=== PATIENT | female | born 1945 | race Caucasian/White ===

== ENCOUNTER 2019-02-07 11:25 | Emergency (ER) | payer MEDICARE ==
[~2019-02-07] VITALS: Ht 157.5 cm; Wt 65.8 kg
--- OUTSIDE RECORDS SUMMARY | 2019-02-07 11:26 | XMS REPORT | Continuity of Care Document ---
Author Author [facility] Interface Address Unknown Phone Unavailable Problems Problem Status Onset Date Classification Date Reported Comments Source Other specified disorders of bone density and structure, unspecified site 01/25/2018 04/25/2018 [facility] [place] C50.919 - MALIGNANT NEOPLASM OF UNSP SIT Active 08/08/2015 [facility] [place] 174.9 BREAST CANCER METASTASIZED TO LIVE Active 07/03/2014 [facility] Asymptomatic menopausal state 04/25/2018 [facility] [place] Medications Medication Details Route Status Patient Instructions Ordering Provider Order Date Source Omniscan 4,305 mg, 15 mL, Route: IV, Drug form: INJ, ONCE, Start date: 07/05/14 14:15:00, Stop date: 07/05/14 14:15:00Notes: (Same as: Omniscan). Inactive 07/05/2014 [facility] Allergies, Adverse Reactions, Alerts Substance Category Reaction Severity Reaction type Status Date Reported Comments Source Immunizations Immunization Date Given Site Status Last Updated Comments Source Results Order Name Results Value Reference Range Date Interpretation Comments Source Breast Mammo Scrn KWASI incl CAD MA Breast Mammo Scrn KWASI incl CAD MA BILATERAL DIGITAL SCREENING MAMMOGRAM WITH CAD: 08/19/2018 CLINICAL: /Z12.31 Encounter For Screening Mammogram For Malignant Neoplasm Of Breast. Current study was evaluated with a Computer Aided Detection (CAD) system. COMPARISON:Comparison is made to exams dated: 08/11/2017 mammogram, 08/04/2016 mammogram, 08/20/2015 mammogram, and 06/06/2014 mammogram - [facility]. TECHNIQUE: Mammographic views were obtained using digital acquisition. Current study was also evaluated with a Computer Aided Detection (CAD) system. FINDINGS: There are scattered fibroglandular densities in both breasts. There is a benign lymph node in the left breast. There also are benign calcifications in both breasts. Additionally, there are post operative findings in the right breast. No significant masses, calcifications, or other findings are seen in either breast. There has been no significant interval change. IMPRESSION: BENIGN RECOMMENDATION:There is no mammographic evidence of malignancy. A 1 year screening mammogram is recommended.(08/20/2019) This exam was interpreted at [id number] for ADALGISA George, SL 15. Professional services are provided by the [facility] Division of Diagnostic Imaging. Richie Anaya M.D. cm/penrad:08/21/2018 09:12:39 Sleeve Machine Tender(s): Priscila Bruce [facility] letter sent: BI-RADS 1/2 Mammogram BI-RADS: 2 Benign 08/19/2018 - - Read by: Jignesh Meraz MD Dictated Date/time: 08/21/18 09:12 Electronically Signed by: Jignesh Meraz MD 08/21/18 09:12 FINAL REPORT ADALGISA George Bone Density DXA Dual Energy MA Bone Density DXA Dual Energy MA BONE DENSITY ASSESSMENT: 01/17/2018 CLINICAL DATA: Post menopausal. Other Specified Disorders Of Bone Density And Structure, Unspecified Site/M85.80 RISK FACTORS: race. FINDINGS: Bone density evaluation was performed 01/17/2018 on the right femur neck using a Hologic unit. The BMD average for the exam is 0.895 g/cm2. The T-score is 0.40 and the Z-score is 2.30. This matches the World Health Organization's criteria for normal bone density and places the patient within normal limits of fracture risk. An additional bone density evaluation was performed 01/17/2018 on the left femur neck using a Hologic unit. The BMD average for the exam is 0.911 g/cm2. The T- score is 0.60 and the Z-score is 2.50. This matches the World Health Organization's criteria for normal bone density and places the patient within normal limits of fracture risk. An additional bone density evaluation was performed 01/17/2018 on the right hip using a Hologic unit. The BMD average for the exam is 0.982 g/cm2. The T-score is 0.30 and the Z-score is 1.90. This matches the World Health Organization's criteria for normal bone density and places the patient within normal limits of fracture risk. An additional bone density evaluation was performed 01/17/2018 on the left hip using a Hologic unit. The BMD average for the exam is 0.943 g/cm2. The Z-score is 1.60. This matches the World Health Organization's criteria for normal bone density and places the patient within normal limits of fracture risk. An additional bone density evaluation was performed 01/17/2018 on the AP L1-L4 region of spine using a Hologic unit. The BMD average for the exam is 0.859 g/cm2. The T-score is -1.70 and the Z-score is 0.50. This matches the World Health Organization's criteria for osteopenia and places the patient at a medium risk for fracture. FRAX 10 year probability of major osteoporotic fracture is 8.6% and hip fracture is 0.4%. IMPRESSION: OSTEOPENIA Patient is at medium risk for fracture. This exam was interpreted at [id number] for MANUELA Delgado 15. Richie Anaya M.D. cm/penrad:01/18/2018 09:07:41 Sleeve Machine Tender(s): Demi AGUAYO(Alethea)(M), [facility] 01/17/2018 - - Read by: Jignesh Meraz MD Dictated Date/time: 01/18/18 09:07 Electronically Signed by: Jignesh Meraz MD 01/18/18 09:07 FINAL REPORT OLIVE [facility] Breast Mammo Diag KWASI incl CAD MA Breast Mammo Diag KWASI incl CAD MA BILATERAL DIGITAL DIAGNOSTIC MAMMOGRAM WITH CAD: 08/11/2017 CLINICAL: Malignant Neoplasm Of Unspecified Site Of Right Female Breast/C50.911. Current study was evaluated with a Computer Aided Detection (CAD) system. COMPARISON:Comparison is made to exams dated: 08/04/2016 mammogram, 08/20/2015 mammogram, 06/06/2014 mammogram, 05/02/2013 mammogram - [facility], and 04/04/2013 mammogram - [facility]. TECHNIQUE: Mammographic views were obtained using digital acquisition. Current study was also evaluated with a Computer Aided Detection (CAD) system. There are scattered fibroglandular densities in both breasts. FINDINGS: There is a benign lymph node in the left breast. There also are benign calcifications in both breasts. Additionally, there are post operative findings in the right breast. No significant masses, calcifications, or other findings are seen in either breast. There has been no significant interval change. IMPRESSION: BENIGN RECOMMENDATION:There is no mammographic evidence of malignancy. A 1 year screening mammogram is recommended.(08/12/2018) This exam was interpreted at [id number] for ADALGISA George. Richie Anaya M.D. cm/penrad:08/11/2017 10:53:59 Sleeve Machine Tender(s): Demi Melendez, RT(R)(M), [facility] letter sent: BI-RADS 1/2 Mammogram BI-RADS: 2 Benign 08/11/2017 - - Read by: Jignesh Meraz MD Dictated Date/time: 08/11/17 10:53 Electronically Signed by: Jignesh Meraz MD 08/11/17 10:53 FINAL REPORT ADALGISA George Hand 2 views Bilateral DX Hand 2 views Bilateral DX EXAM: Hand 2 views Bilateral DX HISTORY: M06.4 Inflammatory polyarthropathy COMPARISON: None 3 views of each hand. There is advanced joint space narrowing and osteophyte formation involving the DIP joints. There is similar change at the PIP joints of the index finger bilaterally with subchondral cystic changes which may represent an erosive arthropathy. In the wrist, there is degenerative change at the distal scaphoid articulation and at the thumb carpal metacarpal joint bilaterally which is moderate in severity. IMPRESSION: Degenerative change as above. 12/13/2016 - - Read by: Jackson Rocha MD Dictated Date/time: 12/13/16 16:54 Electronically Signed by: Jackson Rocha MD 12/13/16 16:55 FINAL REPORT ADALGISA George Breast Limited Uni US Breast Limited Uni US - BREAST LIMITED UNI US/R ULTRASOUND OF RIGHT BREAST: 08/04/2016 CLINICAL: C50.911 Malignant Neoplasm Of Unspecified Site Of Right Female Breast. Comparison is made to exams dated: 08/04/2016 mammogram, 08/20/2015 ultrasound, 08/20/2015 mammogram - [facility], 07/05/2014 breast MRI - [facility], 06/06/2014 ultrasound and 06/06/2014 mammogram - [facility]. Color flow and real-time ultrasound of the right breast were performed. There is a benign post surgical scar in the right breast at 12 o'clock posterior depth. This abnormality is decreased in size. No abnormalities were seen sonographically in the right breast. IMPRESSION: BENIGN These results were discussed with the patient, who was instructed to return if she notices any change in the physical exam. There is no sonographic evidence of malignancy. The post surgical scar in the right breast is benign. A 1 year screening mammogram is recommended. Professional services are provided by the [facility] [place] Division of Diagnostic Imaging. Richie Anaya M.D., cm/penrad:08/04/2016 10:56:24 Sleeve Machine Tender: Bernarda Bowers [facility] This exam was dictated and interpreted by [id number] for ADALGISA George. letter sent: Normal exam Ultrasound BI-RADS: 2 Benign 08/04/2016 - - Read by: Jignesh Anaya III, MD Dictated Date/time: 08/04/16 10:56 Electronically Signed by: Jignesh Anaya III, MD 08/04/16 10:56 FINAL REPORT ADALGISA SCHAEFER Peggy Digital Mammo DX Kwasi MA Digital Mammo DX Kwasi MA - DIGITAL MAMMO DX WKASI MA BILATERAL DIGITAL DIAGNOSTIC MAMMOGRAM WITH CAD: 08/04/2016 CLINICAL: C50.911 Malignant Neoplasm Of Unspecified Site Of Right Female Breast. Current study was evaluated with a Computer Aided Detection (CAD) system. Comparison is made to exams dated: 08/20/2015 mammogram, 06/06/2014 ultrasound, 06/06/2014 mammogram, 05/02/2013 mammogram - [facility], 04/04/2013 mammogram - [facility] [place] and 04/06/2012 mammogram - [facility]. There are scattered fibroglandular densities in both breasts. There is a surgical scar in the right breast at 12 o'clock posterior depth which appears stable. Calcifications in the surgical bed have become more course but have not changed in distribution, a benign finding. No other significant masses, calcifications, or other findings are seen in either breast. IMPRESSION: BENIGN Surgical scar with fat necrosis in the right breast appears benign. An ultrasound will be performed for further evaluation. There is no mammographic evidence of malignancy. Professional services are provided by the [facility] [place] [facility] of Diagnostic Imaging. Richie Anaya M.D. cm/:08/04/2016 09:58:13 Sleeve Machine Tender: Samantha AGUAYO(R)(Viridiana), [facility] This exam was dictated and interpreted by [id number] for ADALGISA George. Mammogram BI-RADS: 2 Benign 08/04/2016 - - Read by: Jignesh Anaya III, MD Dictated Date/time: 08/04/16 09:58 Electronically Signed by: Jignesh Anaya III, MD 08/04/16 09:58 FINAL REPORT ADALGISA ARMIDAAdama Peggy Ext Lower Arterial Doppler unilat US Ext Lower Arterial Doppler unilat US Exam: Right lower extremity Doppler arterial ultrasound Reason for Exam: I73.9 Peripheral vascular disease, unspecified Comparison Exam: None Discussion: Real-time grayscale, color Doppler imaging, and spectral waveform analysis was performed of the right lower extremity deep arterial system. There is no significant stenosis seen throughout the right lower extremity deep arterial system. The velocities are unremarkable. The waveforms appear triphasic throughout. Impression: 1. Unremarkable right lower extremity arterial ultrasound. 01/20/2016 - - Read by: Artem Aldrich MD Dictated Date/time: 01/20/16 15:01 Electronically Signed by: Artem Aldrich MD 01/20/16 15:06 FINAL REPORT ADALGISA ARMIDAAdama Peggy Breast Limited Uni US Breast Limited Uni US - BREAST LIMITED UNI US/R ULTRASOUND OF RIGHT BREAST AND RIGHT AXILLA: 08/20/2015 CLINICAL: History of right breast cancer status post lumpectomy and radiation therapy in 2012, patient presents for follow-up of the right breast. Prior ultrasound on 06/06/2014 recommended ultrasound guided biopsy at the site of post-surgical scar of the right breast. This biopsy was never performed per patient history. Breast MRI on 07/05/2014 revealed right breast post-operative findings without definite evidence of residual/recurrent disease. Comparison is made to exams dated: 05/02/2013 ultrasound, 06/06/2014 mammogram, 06/06/2014 ultrasound - [facility], 07/05/2014 breast MRI - [facility] and 08/20/2015 mammogram - [facility]. Color flow and real-time targeted ultrasound of the right upper breast and axilla were performed. There is a post-surgical scar at the right breast 12 o'clock position, 7 cm from the nipple. Again demonstrated is a mixed echogenicity mass at the margin of the scar that is overall stable compared to prior ultrasound allowing for differences in technique. The mass measures 1.3 x 1.3 x 0.5 cm, previously 1.7 x 1.5 x 0.9 cm on 06/06/2014. No new suspicious findings are seen in the region of the patient's scar. No abnormalities were seen sonographically in the right axilla. IMPRESSION: BENIGN Stable mass adjacent to the post-surgical scar in the right breast 12 o'clock position. This is not significantly changed in appearance compared to ultrasound dated 06/02/2014 suggesting a benign etiology. Recommend mammogram and right breast ultrasound in one year to demonstrate stability, given the patient's scar is difficult to see mammographically. The findings were discussed with the patient at the time of the exam. There is no sonographic evidence of malignancy. A 1 year screening mammogram and an ultrasound is recommended. Mary Valverde M.D. ms/:08/20/2015 14:41:58 Sleeve Machine Tender: Bernarda Bowers, [facility] This exam was dictated and interpreted by [id number] for Peggy. letter sent: Benign Right Ultrasound BI-RADS: 2 Benign 08/20/2015 - - Read by: Mary Valverde MD Dictated Date/time: 08/20/15 14:41 Electronically Signed by: Mary Valverde MD 08/20/15 14:41 FINAL REPORT OLIVE [place] Digital Mammo DX Kwasi MA Digital Mammo DX Kwasi MA - DIGITAL MAMMO DX KWASI MA BILATERAL DIGITAL DIAGNOSTIC MAMMOGRAM WITH CAD: 08/20/2015 CLINICAL: C50.919 Malignant Neoplasm Of Unspecified Site Of Unspecified Female Breast. Current study was evaluated with a Computer Aided Detection (CAD) system. Comparison is made to exams dated: 06/06/2014 mammogram, 05/02/2013 mammogram - [facility], 04/04/2013 mammogram - [facility], 04/06/2012 mammogram, 03/21/2012 mammogram and 02/12/2011 mammogram - [facility]. There are scattered fibroglandular densities in both breasts. The right breast has post-operative findings. The right breast post-surgical scar at the 12 o'clock position, 11 cm from the nipple is difficult to assess mammographically given the far posterior location. This will be better assessed on ultrasound exam to follow. There are benign appearing calcifications in both breasts. No significant masses, calcifications, or other findings are seen in either breast. Ultrasound-guided biopsy of the post-surgical scar area was previously recommended based on findings from ultrasound dated 02/04/2014 and per the records [place] to [place] biopsy was never performed. Breast MRI on 07/07/2014 revealed right breast post-surgical scar without definite evidence of residual/recurrent disease. Ultrasound exam to follow; please see separate report. IMPRESSION: INCOMPLETE: NEEDS ADDITIONAL IMAGING EVALUATION The post-surgical scar at the right breast 12 o'clock position is indeterminate. Ultrasound is recommended. Mary Valverde M.D. ms/:08/20/2015 14:17:51 Sleeve Machine Tender: Samantha Pugh, [facility] This exam was dictated and interpreted by [id number] for ADALGISA George. Mammogram BI-RADS: 0 Indeterminate 08/20/2015 - - Read by: Mary Valverde MD Dictated Date/time: 08/20/15 14:17 Electronically Signed by: Mary Valverde MD 08/20/15 14:17 FINAL REPORT ADALGISA George Bone Density-Dual Energy Absorptionmetry Bone Density-Dual Energy Absorptionmetry - Bone Density-Dual Energy Absorptionmetry BONE DENSITY EVALUATION: 12/12/2014 CLINICAL DATA: Post menopausal, clinical risk for osteoporosis and follow-up to previous study. RISK FACTORS: race. COMPARISON: 04/04/2013 Right total femur area using Lunar Dual Energy X-Ray Absorptiometry from [facility] with reported normal fracture risk, BMD of 1.187g/cm2, T-score of 1.60, Z-score of 2.70 and 137.0% age-match bone mineralization. 04/04/2013 Left total femur area using Lunar Dual Energy X-Ray Absorptiometry from [facility] with reported normal fracture risk, BMD of 1.100g/cm2, T-score of 0.80, Z-score of 1.90 and 127.0% age-match bone mineralization. 04/04/2013 AP L1-L4 region of spine using Lunar Dual Energy X-Ray Absorptiometry from [facility] with reported medium fracture risk, BMD of 1.038g/cm2, T-score of -1.20, Z-score of 0.50 and 107.0% age-match bone mineralization. FINDINGS: Bone density evaluation was performed 12/12/2014 on the AP L1-L4 region of spine using Lunar Dual Energy X-Ray Absorptiometry. The BMD average for the exam is 1.016 g/cm2. The T-score is -1.40 and the Z-score is 0.10. These values indicate 101.0% for age-matched controls. Since the previous similar exam of 04/04/2013, there has been a -0.022 or -2.1% change in the BMD value which represents no significant interval change in bone density. This matches the World Health Organization's criteria for osteopenia and places the patient at a medium risk for fracture. An additional bone density evaluation was performed 12/12/2014 on the right femur neck using Lunar Dual Energy X-Ray Absorptiometry. The BMD average for the exam is 1.073 g/cm2. The T-score is 0.30 and the Z-score is 1.80. These values indicate 130.0% for age-matched controls. This matches the World Health Organization's criteria for normal bone density and places the patient within normal limits of fracture risk. An additional bone density evaluation was performed 12/12/2014 on the right hip using Lunar Dual Energy X-Ray Absorptiometry. The BMD average for the exam is 1.120 g/cm2. The T-score is 0.90 and the Z-score is 2.20. These values indicate 132.0% for age-matched controls. This matches the World Health Organization's criteria for normal bone density and places the patient within normal limits of fracture risk. An additional bone density evaluation was performed 12/12/2014 on the left femur neck using Lunar Dual Energy X-Ray Absorptiometry. The BMD average for the exam is 1.008 g/cm2. The T-score is -0.20 and the Z-score is 1.30. These values indicate 122.0% for age-matched controls. This matches the World Health Organization's criteria for normal bone density and places the patient within normal limits of fracture risk. An additional bone density evaluation was performed 12/12/2014 on the left hip using Lunar Dual Energy X-Ray Absorptiometry. The BMD average for the exam is 1.063 g/cm2. The T-score is 0.40 and the Z-score is 1.70. These values indicate 126.0% for age-matched controls. This matches the World Health Organization's criteria for normal bone density and places the patient within normal limits of fracture risk. IMPRESSION: OSTEOPENIA Patient is at medium risk for fracture. Compared to BMD of prior exam, there has been no significant change in bone density. This exam was dictated and interpreted by [id number] for ADALGISA Conley. Abraham Jolly M.D. srp/penrad:12/12/2014 13:30:00 Sleeve Machine Tender: [employer] 12/12/2014 - - Read by: Abraham Jolly MD Dictated Date/time: 12/12/14 13:30 Electronically Signed by: Abraham Jolly MD 12/12/14 13:30 FINAL REPORT ADALGISA George Breast w/wo contrast bilat MRI Breast w/wo contrast bilat MRI BILATERAL BREAST MRI WITHOUT AND WITH CONTRAST dated 07/05/2014 COMPARISON: Diagnostic mammogram and breast ultrasound 06/06/2014; PET CT 06/07/2013, additional prior mammogram and breast ultrasounds dating back to 02/2011 are also reviewed. HISTORY/INDICATION: 69-year-old female with history of right breast cancer status post lumpectomy and radiation therapy. Most recent mammogram and breast ultrasound exam demonstrates possible mass at the lumpectomy site. The patient also complains of breast pain. Further evaluation with MRI requested. TECHNIQUE: Bilateral breast MRI was performed on a 1.5 Opal magnet with a dedicated breast coil. Sagittal, axial and sagittal subtraction imaging of the Vibrant dynamic images was performed. 15 ccs of Omniscan contrast was administered during the post infusion portion of the exam. Post processing images include post contrast subtraction, maximum intensity projection, and reconstructed multiplanar images. Exam was performed for evaluation of the breasts only. Although the [id number] includes portions of the chest, thoracic spine, and superior aspect of the abdomen, this exam is not diagnostic for those areas as it is not protocolled as such. These areas are limited by technical artifacts and cardiac motion. Time signal intensity curves were also analyzed using a [employer] workstation version 2.1.1. All measurements provided below are in the anterior-posterior X width X craniocaudal format. FINDINGS: Exam is degraded by patient motion. Right breast: Minimal background enhancement is present. Post radiation treatment and postsurgical changes of a right breast lumpectomy with associated postoperative scarring in scar is noted in the posterior depth superior medial quadrant. Very faint enhancement along the medial aspect of the lumpectomy site is noted without definite findings to support residual/recurrent disease. No additional suspicious enhancement throughout the right breast. No internal mammary chain or axillary chain adenopathy. The skin and nipple-areolar complex appear otherwise unremarkable. Left breast: Minimal background enhancement is present. No suspicious enhancement throughout the left breast. No internal mammary chain or axillary chain adenopathy. The skin and nipple-areolar complex appear unremarkable. Large hiatal hernia is incidentally noted. IMPRESSION: Exam is slightly degraded by patient motion. Posttreatment changes to the right breast involving the superior medial quadrant. No definite MR evidence to suggest recurrence/residual disease at the lumpectomy site. Correlation with operative reports to evaluate for surgical margins and their involvement would be beneficial (these are not provided). No MRI evidence for malignancy in the left breast. No adenopathy throughout the exam. However, the prior diagnostic mammogram and ultrasound exam demonstrated findings that were deemed suspicious. The should be discussed with the patient by the referring physician and the patient would likely benefit from an ultrasound guided biopsy for further evaluation. This could be performed at the [facility] if desired. Above findings were called to Dr. Loaiza's answering service at 1545 hours on the day of the exam. The results will be communicated to his covering physician Dr. Dowd. ACR BI-RADS CATEGORY 2 - BENIGN FINDINGS SL: 15 Thank you for allowing us to participate in the care of your patient. 07/05/2014 - - Read by: Zackery Rasheed MD Dictated Date/time: 07/05/14 15:22 Electronically Signed by: Zackery Rasheed MD 07/05/14 15:51 FINAL REPORT [facility] Vital Signs Vital Sign Value Date Comments Source Encounters Location Location Details Encounter Type Encounter Number Reason For Visit Attending Provider ADM Date DC Date Status Source [id number] Daniel Gould 06/06/2014 06/07/2014 [facility] [place] [facility] Out[facility] [id number] Non Physician 07/05/2014 07/06/2014 [facility] [place] [facility] [id number] Marilee-Giana Bryanna 12/12/2014 12/13/2014 [facility] [place] [facility] [place] [facility] [id number] Marilee-Giana Bryanna 08/20/2015 08/21/2015 [facility] [place] [facility] [place] [facility] [id number] Marilee-Giana Bryanna 01/20/2016 01/21/2016 [facility] [place] [facility] [place] [facility] [id number] Susanrufina Baldwin 08/04/2016 08/05/2016 [facility] [place] [facility] [place] [facility] [id number] Demetrius Samuel 12/13/2016 12/14/2016 [facility] [place] [facility] [place] [facility] [id number] [facility] Denny 08/11/2017 08/12/2017 [facility] [place] [facility] [place] [facility] [id number] Marilee-Giana Bryanna 01/17/2018 01/18/2018 [facility] [place] Procedures Procedure Code Date Perfomer Comments Source
--- OUTSIDE RECORDS SUMMARY | 2019-02-07 11:27 | XMS REPORT | Summary of Care ---
Author Author [facility] - [place] Organization [facility] [place] Address Unknown Phone Unavailable Encounter HQ Encntr_alias(FIN) [id number] Date(s): 01/17/18 - 01/17/18 [facility] [place] [address] [place] [place] [address] [phone] Discharge Disposition: Home or Self Care Attending Physician: Daniel Gould MD Vital Signs No data available for this section Problem List No data available for this section Allergies, Adverse Reactions, Alerts Substance Reaction Severity Status NKDA Active Medications No data available for this section Results No data available for this section Immunizations No data available for this section Procedures No data available for this section Social History No data available for this section Assessment and Plan No data available for this section
--- OUTSIDE RECORDS SUMMARY | 2019-02-07 11:27 | XMS REPORT | Summary of Care ---
Author Author [facility] - [place] Organization [facility] [place] Address Unknown Phone Unavailable Encounter HQ Encntr_alias(FIN) [id number] Date(s): 12/13/16 - 12/13/16 [facility] Out[facility] - [place] [address] [place] [address]- [phone] Discharge Disposition: Home or Self Care Attending Physician: Demetrius Samuel MD Vital Signs No data available for [...]
--- OUTSIDE RECORDS SUMMARY | 2019-02-07 11:27 | XMS REPORT | Summary of Care ---
Author Author [facility] Outpatient Imaging - [facility] - [place] Address Unknown Phone Unavailable Encounter HQ Encntr_alias(FIN) [id number] Date(s): 01/17/18 - 01/17/18 [facility] - [place] [address] [place] [phone] Encounter Diagnosis Other specified disorders of bone density and structure, unspecified site (Final) - 01/24/18 Asymptomatic menopausal state (Final) - Discharge Disposition: Home or Self Care Attending [...]
--- OUTSIDE RECORDS SUMMARY | 2019-02-07 11:27 | XMS REPORT | Summary of Care ---
Author Author [facility] [place] Organization [facility] [place] Address Unknown Phone Unavailable Encounter HQ Deidrer_kari([facility]) [id number] Date(s): 08/04/16 - 08/04/16 [facility] [place] [address] [place] [address]- [phone] Discharge Disposition: Home or Self Care Attending Physician: Susan Baldwin MD Vital Signs No data available for [...]
--- OUTSIDE RECORDS SUMMARY | 2019-02-07 11:27 | XMS REPORT | Summary of Care ---
Author Author [facility] - [place] Organization [facility] [place] Address Unknown Phone Unavailable Encounter HQ Encntr_alijavier(FIN) [id number] Date(s): 01/20/16 - 01/20/16 [facility] [place] [address] [address] [phone] Discharge Disposition: Home Attending Physician: Daniel Gould MD Vital Signs [...]
--- OUTSIDE RECORDS SUMMARY | 2019-02-07 11:27 | XMS REPORT | Summary of Care ---
Author Organization Unknown Address Unknown Phone Unavailable Encounter HQ Meganntr_kari([facility]) [id number] Date(s): 06/06/14 - 06/06/14 [facility] Outpatient Imaging - [address] [address] [place] Discharge Disposition: Home Physician Attending: Daniel Gould MD Reason for Visit 174.9 - MALIGN NEOPL BR Problem List No data available for this section Allergies, Adverse Reactions, Alerts No data available for this section Medications No data available for this section Medications Administered During Your Visit No data available for this section Immunizations No data available for this section
--- OUTSIDE RECORDS SUMMARY | 2019-02-07 11:27 | XMS REPORT | Summary of Care ---
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 Start Date: 07/05/14 Stop Date: 07/05/14 Status: Completed Medications Administered During Your Visit No data available for this section Immunizations No data available for this section
--- OUTSIDE RECORDS SUMMARY | 2019-02-07 11:27 | XMS REPORT | Summary of Care ---
Author Author [facility] Out[facility] - [place] Organization [facility] [place] Address Unknown Phone Unavailable Encounter HQ Encntr_alijavier(FIN) [id number] Date(s): 08/20/15 - 08/20/15 [facility] - [place] [address] [address]- [facility] [phone] Discharge Disposition: Home Attending Physician: Daniel Gould [...]
--- OUTSIDE RECORDS SUMMARY | 2019-02-07 11:27 | XMS REPORT | Summary of Care ---
Author Author [facility] Out[facility] - [place] Organization [facility] [place] Address Unknown Phone Unavailable Encounter HQ Deidrer_kari([facility]) [id number] Date(s): 08/11/17 - 08/11/17 [facility] Outpatient [facility] - [place] [address] [phone] Discharge Disposition: Home or Self Care Attending [...]
--- OUTSIDE RECORDS SUMMARY | 2019-02-07 11:27 | XMS REPORT | Summary of Care ---
Author Organization Unknown Address Unknown Phone Unavailable Encounter HQ Encntr_kari([facility]) [id number] Date(s): 12/12/14 - 12/12/14 [facility] Outpatient Imaging - [place] [address] [place] [address] [facility] [phone] Discharge Disposition: Home Physician Attending: Daniel Gould MD Vital Signs No data [...]
--- NOTE | 2019-02-07 12:29 | Diagnostic Imaging Report ---
Examination: CT head without contrast Clinical Indication: Fall with head injury. Technique: Transaxial noncontrast images from the skull base through the vertex were obtained. Sagittal and coronal reformatted images were done. Dose modulation, iterative reconstruction, and/or weight based adjustment of the mA/kV was utilized to reduce the radiation dose to as low as reasonably achievable. Comparison: None. Findings: Scalp: No abnormalities. Bones: Intact. No fractures. No blastic or lytic lesions. Brain sulci: Appropriate for patient's age. Ventricles: Normal in size and configuration. No hydrocephalus. . Extra-axial space: No abnormalities. Parenchyma: There are patchy areas of low-attenuation within subcortical and periventricular white matter, nonspecific, but could represent microvascular ischemic disease. No masses, hemorrhage, or acute or chronic cortical based vascular insults. Suprasellar region: No abnormalities. Craniocervical junction: The foramen magnum is patent. No Chiari one malformation. Impression: 1. No acute intracranial finding. 2. Mild chronic microvascular ischemic change. Signed by: Dr. Milka Holder M.D. on 02/07/2019 12:25 PM
--- NOTE | 2019-02-07 12:30 | Diagnostic Imaging Report ---
Examination: CT CERVICAL SPINE WITHOUT CONTRAST HISTORY:Neck injury after fall. COMPARISON:None. TECHNIQUE: Multidetector helical axial images were obtained without contrast from the foramen magnum to T1. Coronal and sagittal reformatted images were done. Bone and soft tissue windows were evaluated. Dose modulation, iterative reconstruction, and/or weight based adjustment of the mA/kV was utilized to reduce the radiation dose to as low as reasonably achievable. FINDINGS: Alignment:Normal alignment and lordosis. Vertebrae: Normal height and density. No acute fracture, infection or neoplasm. Disc space heights: Normal height. Caliber of spinal canal: Developmentally normal. Posterior fossa and craniocervical junction: Foramen magnum patent. No Chiari 1 malformation. Soft tissues: No abnormality. Degenerative changes: Mild facet arthropathy from C2 through C7 on the left and at C4-C5 on the right. Grade 1 anterolisthesis of C4 on C5. No disc bulge/ herniation or foraminal or canal stenosis. Visualized lung apices: No abnormalities. IMPRESSION: No acute abnormalities. Signed by: Dr. Milka Holder M.D. on 02/07/2019 12:27 PM
[2019-02-07 13:08] VITALS: BP 142/80
== END 2019-02-07 13:12 | disposition home or self-care (01) ==
LOC: ER 11:25
DX: S00.03XA Contusion of scalp, initial encounter (principal); W18.2XXA Fall in (into) shower or empty bathtub, initial encounter; Y93.89 Activity, other specified; Y92.012 Bathroom of single-family (private) house as the place of occurrence of the external cause; I10 Essential (primary) hypertension; E11.9 Type 2 diabetes mellitus without complications; E78.5 Hyperlipidemia, unspecified; Z83.3 Family history of diabetes mellitus; Z82.49 Family history of ischemic heart disease and other diseases of the circulatory system
CPT/HCPCS: 70450; 72125; 99283

== ENCOUNTER → 2019-05-21 | Outpatient (CLI) | payer MEDICARE ==
--- NOTE | 2019-05-21 15:33 | Diagnostic Imaging Report ---
EXAMINATION: CHEST 2 VIEWS INDICATION: Cough COMPARISON: None FINDINGS: LINES/TUBES:None LUNGS:The lungs are well-inflated. No focal pneumonia or pulmonary edema. Bibasilar subcentimeter calcified granulomas. PLEURA:No pleural effusion or pneumothorax. MEDIASTINUM:The cardiomediastinal silhouette appears normal in size and shape. Atherosclerotic calcifications of the thoracic aorta. Moderate hiatal hernia. BONES/SOFT TISSUES:No acute osseous injury. ABDOMEN:No free air under the diaphragm. IMPRESSION: No focal pneumonia or pulmonary edema. Moderate hiatal hernia. Signed by: Gabrielle Kim MD on 05/21/2019 3:29 PM
== END ==
LOC: RAD 14:19
PROVIDERS: ATTEND Internal Medicine Medical Oncology
DX: R05 Cough (principal)
CPT/HCPCS: 71046